=== PATIENT | male | born 1995 | race Caucasian/White ===

== ENCOUNTER 2017-01-22 00:52 | Emergency (ER) | payer MEDICAID | END 2017-01-22 01:48 | disposition home or self-care (01) | LOC: D.ER 00:52 | DX: S93.401A Sprain of unspecified ligament of right ankle, initial encounter (principal); W17.89XA Other fall from one level to another, initial encounter; Y93.89 Activity, other specified; Y92.89 Other specified places as the place of occurrence of the external cause ==

== ENCOUNTER → 2017-03-11 12:51 | Outpatient (CLI) | payer MEDICAID | END | disposition home or self-care (01) | LOC: D.RAD 12:51 | DX: M54.5 Low back pain (principal) ==

== ENCOUNTER 2017-06-02 13:22 | Emergency (ER) | payer MEDICAID | END 2017-06-02 14:59 | disposition home or self-care (01) | LOC: D.ER 13:22 | DX: S91.311A Laceration without foreign body, right foot, initial encounter (principal); W26.9XXA Contact with unspecified sharp object(s), initial encounter; Z23 Encounter for immunization; L03.115 Cellulitis of right lower limb; F17.200 Nicotine dependence, unspecified, uncomplicated ==

== ENCOUNTER 2020-05-21 00:34 | Inpatient (IN) | payer SELFPAY ==
[~2020-05-21] VITALS: Ht 167.6 cm; Wt 175.5 kg
[2020-05-21 01:09] LABS: BILIRUBIN NEGATIVE (NEGATIVE); GLUCOSE 500 mg/dL (NEGATIVE); KETONE NEGATIVE (NEGATIVE); NITRITE NEGATIVE (NEGATIVE); SPECIFIC GRAVITY 1.005 (1.005-1.020); UROBILINOGEN NORMAL (NORMAL)
[2020-05-21 01:19] LABS: HEMATOCRIT 37.8 % (42.0-54.0); HEMOGLOBIN 12.3 g/dL (13.5-17.5); MCH 29.6 pg (26.0-34.0); MCHC 32.5 g/dL (31.0-37.0); MCV 90.9 fL (80.0-100.0); MEAN PLATELET VOLUME 10.2 fL (7.4-10.4); PLATELET COUNT 330 10x3/uL (130-400); RBC 4.16 10x6/uL (4.20-6.10); RDW 12.8 % (11.5-14.5); WBC 22.5 10x3/uL (4.8-10.8)
[2020-05-21 01:19] LABS: UDS - AMPHET POSITIVE QUAL (NEGATIVE); UDS - BARB NEGATIVE QUAL (NEGATIVE); UDS - BENZO NEGATIVE QUAL (NEGATIVE); UDS - COCAINE NEGATIVE QUAL (NEGATIVE); UDS - OPIATE NEGATIVE QUAL (NEGATIVE); UDS - PCP NEGATIVE QUAL (NEGATIVE); UDS - THC NEGATIVE QUAL (NEGATIVE)
[2020-05-21 01:40] LABS: EOSINOPHILS 1 % (0-7); LYMPHOCYTES 11 % (15-50); MONOCYTES 5 % (2-11); NEUTROPHILS 81 % (40-80); PLATELET ESTIMATE NORMAL
[2020-05-21 01:44] LABS: ALBUMIN 3.2 g/dL (3.4-5.0); ALKALINE PHOSPHATASE 87 U/L (30-120); ALT (SGPT) 60 U/L (10-68); BILIRUBIN - TOTAL 0.73 mg/dL (0.2-1.3); CALC OSMOLALITY 280 mosm/kg (275-300); CALCIUM 8.3 mg/dL (8.5-10.1); CARBON DIOXIDE 26.7 mmol/L (21.0-32.0); CHLORIDE - SERUM 95 mmol/L (98-107); CREATINE KINASE 656 UL (21-232); CREATININE - SERUM 1.1 mg/dL (0.6-1.3); MAGNESIUM - SERUM 1.6 mg/dL (1.8-2.4); POTASSIUM - SERUM 3.6 mmol/L (3.5-5.1); PRO BNP 59 pg/mL (0-125); PROTEIN - SERUM 7.4 g/dL (6.4-8.2); SODIUM 131 mmol/L (136-145); THYROID STIMULATING HORMONE 0.55 uIU/mL (0.36-3.74); TROPONIN-I < 0.017 ng/mL (0.000-0.060); UREA NITROGEN 9 mg/dL (7-18); eGFR NON AFRICAN AMERICAN 87 mL/min (90-120)
[2020-05-21 01:46] LABS: GLUCOSE 439 mg/dL (74-106)
[2020-05-21 01:47] LABS: CKMB 0.3 U/L (0.0-3.6)
--- NOTE | 2020-05-21 02:08 | NUR ---
PT TO RADIOLOGY VIA STRETCHER.
[2020-05-21 05:20] VITALS: BP 145/90; BMI 62.4
[2020-05-21 09:10] VITALS: Ht 167.6 cm; Wt 175.5 kg
[2020-05-21 10:39] VITALS: BP 140/74
[2020-05-21 12:00] VITALS: BP 138/77
[2020-05-21 14:26] LABS: BASOPHILS 0.1 % (0-2); HEMATOCRIT 35.6 % (42.0-54.0); HEMOGLOBIN 11.5 g/dL (13.5-17.5); IMMATURE GRANULOCYTES 0.9 % (0-5); LYMPHOCYTES 12.7 % (15-50); MCH 29.9 pg (26.0-34.0); MCHC 32.3 g/dL (31.0-37.0); MCV 92.5 fL (80.0-100.0); MEAN PLATELET VOLUME 10.4 fL (7.4-10.4); NEUTROPHILS 76.3 % (40-80); RBC 3.85 10x6/uL (4.20-6.10); RDW 12.9 % (11.5-14.5)
[2020-05-21 14:28] LABS: PLATELET COUNT 233 10x3/uL (130-400); WBC 14.6 10x3/uL (4.8-10.8)
--- NOTE | 2020-05-21 14:29 | NUR ---
PATIENT REMOVED CPAP PER SELF AND JUST HOLDING OVER FACE. REFUSES TO LET RESPIRATORY THERAPY ASSSIT WITH PROPER PLACEMENT OR TREATMENT.
[2020-05-21 14:39] LABS: CALCIUM 7.6 mg/dL (8.5-10.1); CARBON DIOXIDE 31.3 mmol/L (21.0-32.0); CHLORIDE - SERUM 100 mmol/L (98-107); POTASSIUM - SERUM 3.8 mmol/L (3.5-5.1); SODIUM 137 mmol/L (136-145)
[2020-05-21 14:56] LABS: CALC OSMOLALITY 279 mosm/kg (275-300); CKMB 0.9 U/L (0.0-3.6); CREATININE - SERUM 0.7 mg/dL (0.6-1.3); GLUCOSE 250 mg/dL (74-106); PRO BNP 126 pg/mL (0-125); TROPONIN-I < 0.017 ng/mL (0.000-0.060); UREA NITROGEN 6 mg/dL (7-18); eGFR NON AFRICAN AMERICAN > 90 mL/min (90-120)
[2020-05-21 14:57] LABS: CREATINE KINASE 355 UL (21-232)
[2020-05-21 15:23] LABS: APTT 30.5 SECONDS (22.8-39.4); INR 1.2 (0.85-1.17); PROTIME 15.2 SECONDS (11.6-15.0)
--- NOTE | 2020-05-21 15:40 | NUR ---
AT APPROX. 1400 I ENTERED THE PATIENTS ROOM TO PUT HIS BIPAP MASK BACK ON. THE PATIENT WAS HOLDING IT TO HIS FACE AND AFTER I EXPLAINED TO HIM WHAT I WAS GOING TO I TRIED TO PUT HIS MASK BACK ON. THE PATIENT YANKED THE MASK AWAY FROM ME AND TOLD ME HE WAS GOING TO HOLD IT. I EXPLAINED TO HIM THAT IT DIDNT WORK THAT WAY AND I NEEDED TO FIT IT TO HIS FACE AND ALSO GIVE HIM AN UPDRAFT. THE PATIENT REFUSED TO COMPLY SO I LEFT THE ROOM AND LET RAZ ODONNELL KNOW WHAT HAPPENED.
[2020-05-21 16:00] VITALS: BP 151/98
[2020-05-21 18:37] VITALS: BP 151/98
[2020-05-21 20:21] VITALS: BP 114/38
--- NOTE | 2020-05-21 23:00 | NUR ---
PT NON-COMPLIANT, WILL NOT WEAR HIS BIPAP OR OXYGEN. C/O OF FACIAL PAIN 07/11. TEACHING TO PT ON RISK OF NOT WEARING HIS BIPAP AND ADVISED HIM TO WEAR BIPAP BEFORE ADMINISTRATION OF PAIN MEDICATION. PT AGREED AND ALLOWED RT MARCUS TO PUT THE BIPAP ON HIM. GAVE PT SCHEDULED MEDS AND MORPHINE 1MG IV PUSH. FSBS 242 - GAVE 8 UNITS INSULIN PER SS. RESUMED IV FLUIDS. COMPLETE ASSESSMENT PER FLOW-SHEET. DROPLET ISOLATION PRECAUTIONS OBSERVED. WILL CONTINUE TO MONITOR.
[2020-05-22 00:25] VITALS: BP 121/40
[2020-05-22 04:30] VITALS: BP 124/82
[2020-05-22 06:58] LABS: HEMATOCRIT 35.3 % (42.0-54.0); HEMOGLOBIN 11.4 g/dL (13.5-17.5); LYMPHOCYTES 14.4 % (15-50); MCH 29.2 pg (26.0-34.0); MCHC 32.3 g/dL (31.0-37.0); MCV 90.5 fL (80.0-100.0); MEAN PLATELET VOLUME 9.7 fL (7.4-10.4); NEUTROPHILS 77.1 % (40-80); PLATELET COUNT 289 10x3/uL (130-400); RDW 12.1 % (11.5-14.5); WBC 14.2 10x3/uL (4.8-10.8)
[2020-05-22 07:09] LABS: CALCIUM 7.8 mg/dL (8.5-10.1); CARBON DIOXIDE 31.9 mmol/L (21.0-32.0); CHLORIDE - SERUM 100 mmol/L (98-107); CREATININE - SERUM 0.7 mg/dL (0.6-1.3); MAGNESIUM - SERUM 1.8 mg/dL (1.8-2.4); SODIUM 137 mmol/L (136-145); eGFR NON AFRICAN AMERICAN > 90 mL/min (90-120)
[2020-05-22 07:10] LABS: CALC OSMOLALITY 275 mosm/kg (275-300); GLUCOSE 192 mg/dL (74-106); POTASSIUM - SERUM 3.2 mmol/L (3.5-5.1); UREA NITROGEN 4 mg/dL (7-18)
[2020-05-22 08:44] VITALS: BP 131/82
--- NOTE | 2020-05-22 09:04 | NUR ---
ALERT AND ORIENTED X4. PURULENT SINUS CONGESTION NOTED WITH ERRYTHEMA TO SINUS POSTERIOR NARES. FLONASE USED PER ORDER FOR CONGESTION WITH PATINET ADMINISTERED PER SELF. LUNGS DIMINISHED X4 ANTERIOR AND STATES WILL PUT CPAP ON POST BREAKFAST. INSTRUCTED ON DIABETIC DIET AND RESTRICTIONS AND VERBALIZED UNDERSTANDING. UP ADLIB TO BATHROOM.
--- NOTE | 2020-05-22 10:08 | NUR ---
PATIENT DESCIDED TO LEAVE AMA WITH RISKS DISCUSSED WITH PATIENT RELATED TO COMORBIDITIES BY RN AND ADRIEL POND APN WITH VERBALIZATION OF UNDERSTANDING.
--- NOTE | 2020-05-23 08:18 | EC ---
PATIENT:JOSE ANDRADE DATE OF SERVICE: 05/21/20 SEX: M MEDICAL RECORD: [id number] DATE OF : [birth year] LOCATION:[facility] AGE OF PATIENT: 24 ADMISSION DATE: 05/21/20 REFERRING PHYSICIAN: INTERPRETING PHYSICIAN: SHARLA BONILLA MD ECHOCARDIOGRAM REPORT ECHO CHARGES 4 ECHO COMPLETE Date: 05/21/20 CLINICAL DIAGNOSIS: SOB/AMPHET USE/POSSIBLE PE ECHOCARDIOGRAPHIC MEASUREMENTS (adult normal given) AC root (d.<3.7cm) 3.4 cm LV Septum d (<1.2 cm> 1.6 cm Valve Excursion 1.3 cm LV Septum (systole) 2.2 cm Left Atria (s.<4.0cm> 3.3 cm LVPW d(<1.2cm) 1.7 cm RV (d.<2.3cm) 2.5 cm LVPW (sytole) 2.4 cm LV diastole(<5.6CM) 4.9 cm MV E-F(>70mm/sec) cm LV systole 2.8 cm LVOT Diameter 2.4 cm MV exc.(>10mm) cm Est.ejection fraction (50-75%) % DOPPLER: LVIT cm/sec A 72.0 cm/sec E 116 cm/sec LA cm/sec RVSP 27.4 mmHg LVOT 127 cm/sec AOP1/2T m/s Asc. Ao 140 cm/sec RVOT 75.0 cm/sec RA cm/sec PA 152 cm/sec AV Gradient Peak 7.8 mmHg AV Mean 4.9 mmHg AV Area 3.7 cm MV Gradient Peak 8.8 mmHg MV Mean 3.4 mmHg MV Area cm COMMENTS: Supervisor [employer]: Jack VELEZOE [employer]: [place] TAPE# PACS Pericardial Effusion N DATE OF SERVICE: 05/21/2020 PROCEDURE: Transthoracic echocardiogram. FINDINGS: Left ventricle is normal size, mild left ventricular hypertrophy with ejection fraction 55% to 60% and evidence of mild diastolic dysfunction. Left atrium is normal size, shape, and function. The aortic valve appears to be normal. ECHOCARDIOGRAM REPORT [id number] JOSE ANDRADE Mitral valve appears to be normal. Tricuspid valve appears to be normal. Pericardium is normal. Right ventricle is mildly enlarged at 2.5 cm. Right atrium is normal size, shape, and function. Pulmonary valve is normal. IMPRESSION: Overall, this is a normal echocardiogram with normal function, potentially mild left ventricular hypertrophy. TRANSINT:[id number] Voice Confirmation ID: [id number] DOCUMENT ID: [id number] SHARLA BONILLA MD at 0818 CC: [id number] DICTATION DATE: 05/22/20 1050 E[employer] OPPORTUNITY DIRECTOR: 05/22/20 1422 DIS IN 05/22/20 [place] [id number] [place] [id number]
== END 2020-05-22 10:08 | disposition left against medical advice (07) | DRG 193 ==
LOC: D.ER 00:34 → D.MS 03:07
PROVIDERS: Family Medicine; ADMIT Family Medicine; ATTEND Family Medicine
DX: J09.X2 Influenza due to identified novel influenza A virus with other respiratory manifestations (principal); J96.01 Acute respiratory failure with hypoxia; J96.02 Acute respiratory failure with hypercapnia; G93.41 Metabolic encephalopathy; E87.1 Hypo-osmolality and hyponatremia; F15.20 Other stimulant dependence, uncomplicated; F17.203 Nicotine dependence unspecified, with withdrawal; Z68.44 Body mass index [BMI] 60.0-69.9, adult; J11.1 Influenza due to unidentified influenza virus with other respiratory manifestations; E11.65 Type 2 diabetes mellitus with hyperglycemia; E66.01 Morbid (severe) obesity due to excess calories; D64.9 Anemia, unspecified; Z72.89 Other problems related to lifestyle

== ENCOUNTER 2020-07-23 17:24 | Emergency (ER) | payer SELFPAY ==
[2020-07-23 17:43] VITALS: Ht 167.6 cm
[2020-07-23] MEDS ORDERED: AUGMENTIN 875-11 TAB PO (19:24)
[2020-07-23] MEDS ORDERED: HYDROCODON-ACE1 EA10 PO (19:24)
[2020-07-23 20:18] VITALS: BP 160/77
== END 2020-07-23 20:19 | disposition home or self-care (01) ==
LOC: D.ER 17:24
DX: H66.92 Otitis media, unspecified, left ear (principal); H60.92 Unspecified otitis externa, left ear

== ENCOUNTER 2020-08-21 15:33 | Emergency (ER) | payer SELFPAY ==
[~2020-08-21 15:33] MED LIST: AUGMENTIN 875-11 TAB PO; HYDROCODON-ACE1 EA10 PO
[2020-08-21 15:53] VITALS: Ht 167.6 cm
[2020-08-21 16:24] LABS: BASOPHILS 0.1 % (0-2); EOSINOPHILS 0.1 % (0-7); HEMATOCRIT 42.3 % (42.0-54.0); HEMOGLOBIN 14.3 g/dL (13.5-17.5); IMMATURE GRANULOCYTES 0.6 % (0-5); LYMPHOCYTES 4.8 % (15-50); MCHC 33.8 g/dL (31.0-37.0); MCV 88.9 fL (80.0-100.0); MEAN PLATELET VOLUME 11.3 fL (7.4-10.4); MONOCYTES 12.3 % (2-11); NEUTROPHILS 82.1 % (40-80); PLATELET COUNT 288 10x3/uL (130-400); RBC 4.76 10x6/uL (4.20-6.10); RDW 13.5 % (11.5-14.5); WBC 19.4 10x3/uL (4.8-10.8)
[2020-08-21 16:37] LABS: INR 1.27 (0.85-1.17); PROTIME 15.8 SECONDS (11.6-15.0)
[2020-08-21 16:57] LABS: BILIRUBIN - TOTAL 1.74 mg/dL (0.2-1.3); CALCIUM 8.4 mg/dL (8.5-10.1); CARBON DIOXIDE 22.4 mmol/L (21.0-32.0); CREATININE - SERUM 1.5 mg/dL (0.6-1.3); POTASSIUM - SERUM 3.3 mmol/L (3.5-5.1); PROTEIN - SERUM 7.4 g/dL (6.4-8.2)
[2020-08-21 16:58] LABS: ANION GAP 15.9 mmol/L (8-16)
[2020-08-21 18:01] VITALS: BP 107/38
== END 2020-08-21 18:02 | disposition other institution (70) ==
LOC: D.ER 15:33
PROVIDERS: Family Medicine
DX: N49.3 Fournier gangrene (principal); E86.0 Dehydration; R79.89 Other specified abnormal findings of blood chemistry; R74.0 Nonspecific elevation of levels of transaminase and lactic acid dehydrogenase [LDH]; R50.9 Fever, unspecified; E80.7 Disorder of bilirubin metabolism, unspecified; R73.9 Hyperglycemia, unspecified; E88.09 Other disorders of plasma-protein metabolism, not elsewhere classified; E83.51 Hypocalcemia; E87.6 Hypokalemia; E87.1 Hypo-osmolality and hyponatremia; D72.828 Other elevated white blood cell count; A41.9 Sepsis, unspecified organism; I49.5 Sick sinus syndrome